=== PATIENT | female | born 1945 | race African-American/Black ===

== ENCOUNTER → 2017-03-18 | Day surgery (SDC) | payer OTHER ==
[~2017-03-18] MED LIST: ALKA-SELTZER PLUS; BENADRYL ALLERG25 M1 PO; CHLORASEPTIC177 M1; OMEPRAZOLE20 M1 PO; ROBITUSSIN; SUDAFED; SYNTHROID112 MCG PO; VITAMIN D 22000 UNIT PO; [UNRECOGNIZED DRUG - OTHER]
--- NOTE | ~2017-03-18 | OR ---
Unit #: [id number] #: [id number] Patient: SABA HOWARD [id number] [address] [id number] O MR#: [id number] NAME: SABA HOWARD. ROOM: Date of Procedure: 03/18/2017 Admission Date: 03/18/2017 Surgeon: Reinier Ascencio M.D. : 1945 Attending Physician: Reinier Ascencio M.D. Primary Care Physician: [facility] OPERATIVE REPORT PROCEDURE PERFORMED Esophagogastroduodenoscopy with biopsy. INDICATIONS FOR PROCEDURE Persistent nausea, vomiting, and epigastric pain, undergoing evaluation with upper endoscopy. MEDICATIONS Monitored anesthesia. POSTOPERATIVE FINDINGS 1. Small hiatal hernia. 2. Esophageal ring, nonobstructive. 3. Chronic gastritis. Biopsies taken. 4. Mild duodenitis. PLAN Followup on the pathology report and increase omeprazole to twice daily. DESCRIPTION OF PROCEDURE The patient was explained of the procedure, risks, and benefits along with the risks and benefits of anesthesia. She was brought to the endoscopy room. Propofol anesthesia was given. Bite block was placed. The scope was passed down the mouth into the esophagus, stomach, duodenum, and distal duodenum. Findings as described. Biopsies were taken. Gently, I pulled the scope out of the patient's mouth. She tolerated it well. Dictated by... Dov Moreno/alex TD: 04/01/2017 17:40 JOB #: [id number] Unit #: [id number] #: [id number] Patient: SABA HOWARD OPERATIVE REPORT Page 1 of 1 X Reinier Ascencio MD PROCEDURE OPERATIVE NOTE
== END | disposition home or self-care (01) ==
LOC: COPS 07:36
DX: K22.2 Esophageal obstruction (principal); K44.9 Diaphragmatic hernia without obstruction or gangrene; K29.50 Unspecified chronic gastritis without bleeding; K29.80 Duodenitis without bleeding; E03.9 Hypothyroidism, unspecified; F17.200 Nicotine dependence, unspecified, uncomplicated; Z90.710 Acquired absence of both cervix and uterus; Z88.5 Allergy status to narcotic agent; Z88.2 Allergy status to sulfonamides
CPT/HCPCS: 88305; 88312